=== PATIENT | male | born 1980 | race Caucasian/White ===

== ENCOUNTER 2019-07-07 08:03 | Emergency (ER) | payer MEDICAID ==
[~2019-07-07] VITALS: Ht 182.9 cm; Wt 96.4 kg
[2019-07-07] MEDS ORDERED: HYDROcodone/APAP 5/325MG 1 TAB TABLET PO ONE (08:30)
[2019-07-07] MEDS ORDERED: HYDR-3165 PO (08:36)
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
[2019-07-07 08:37] VITALS: BP 173/116
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
== END 2019-07-07 09:10 | disposition home or self-care (01) ==
LOC: ER 08:03
DX: M25.512 Pain in left shoulder (principal); R07.81 Pleurodynia; Z88.0 Allergy status to penicillin; Z88.1 Allergy status to other antibiotic agents; V09.9XXA Pedestrian injured in unspecified transport accident, initial encounter; Y93.01 Activity, walking, marching and hiking; Y92.488 Other paved roadways as the place of occurrence of the external cause; Y99.8 Other external cause status
CPT/HCPCS: 71101; 73030; 99284

== ENCOUNTER 2019-07-09 08:28 | Emergency (ER) | payer SELFPAY ==
[~2019-07-09] VITALS: Ht 182.9 cm; Wt 96.4 kg
[~2019-07-09 08:28] MED LIST: HYDR-3165 PO
[2019-07-09 08:39] VITALS: BP 166/109
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
== END 2019-07-09 09:18 | disposition home or self-care (01) ==
LOC: ER 08:28
DX: M25.512 Pain in left shoulder (principal); F41.9 Anxiety disorder, unspecified; K21.9 Gastro-esophageal reflux disease without esophagitis; I10 Essential (primary) hypertension; Z53.21 Procedure and treatment not carried out due to patient leaving prior to being seen by health care provider; Z88.0 Allergy status to penicillin; Z88.1 Allergy status to other antibiotic agents
CPT/HCPCS: 99281